=== PATIENT | male | born 1980 | race Caucasian/White ===

== ENCOUNTER 2020-03-20 14:56 | Emergency (ER) | payer OTHER ==
[~2020-03-20] VITALS: Ht 193 cm; Wt 108.9 kg
[~2020-03-20 14:56] MED LIST: AMARYL4 MG; ASPART; BACTRIM DS TAB1 EACH PO; FLEXERIL PO; GLUCOPHAGE1000 MG; HUMULINR100 SQ; HYDROCODON-ACE1 EAC7 PO; INSULIN N; INSULIN R; KEFLEX500 MG PO; LANTUS; NAPROSYN500 MG PO; NICOTINE TRANSD21 M1 TRANSDERM; NOHOMEMEDICATIONS; NORCO 5-325 TA1 EACH PO; NOVOLIN N100 UNIT/3 SUBQ; NOVOLIN R100 UNIT/1 SUBQ; TRAMADOL 50 MG50 MG PO; VICODIN 5-5001 EACH PO; ZOCOR 20 MG TAB20 M1
[2020-03-20] MEDS ORDERED: HUMULIN N100 UNIT/3 SUBQ ×2 (15:05→15:06)
[2020-03-20] MEDS ORDERED: CLEOCIN HCL150 MG PO ×3 (16:21→16:25)
[2020-03-20] MEDS ORDERED: NORCO 5-325 TA1 EAC1 PO ×3 (16:21→16:25)
[2020-03-20 16:32] VITALS: BP 140/75
== END 2020-03-20 16:33 | disposition home or self-care (01) ==
LOC: M.ERS 14:56
DX: L03.211 Cellulitis of face (principal); E11.9 Type 2 diabetes mellitus without complications; F17.210 Nicotine dependence, cigarettes, uncomplicated; Z86.19 Personal history of other infectious and parasitic diseases; Z79.4 Long term (current) use of insulin

== ENCOUNTER 2020-08-16 12:28 | Inpatient (IN) | payer OTHER ==
[2020-08-16] VITALS (13 sets, daily range): BP systolic 101–127; BP diastolic 51–79
[~2020-08-16] VITALS: Ht 193 cm; Wt 96.2 kg
--- NOTE | ~2020-08-16 | EMS ---
[address] [address] EMS Patient Care Report Name: DORENE VILLALBA Room: [address] IN ..#: [id number] Admission: 08/16/20 Attend Phys: Dianna Dupree MD Discharge: Date of : 84 Report #: [id number] THIS REPORT FOR: //name// Report Transmitted: 08/16/2020 16:30 EMS Care Summary [employer] [facility] Incident [id number] @ 08/16/2020 11:57 Incident Location [address] [place] [address] Patient DORENE VILLALBA Male, 40 Years 1980 Patient Address [address] [place] [address] Patient History Diabetes, Patient Allergies No known allergies, Chief Complaint Chest pain Disposition Transported No Lights/[place] [facility] Reason Sick Person Transported To [facility] Narrative Upon arrival the patient was located sitting on the steps in front of his front door. The patient was holding his chest and slouched over. The patient was found to be A&O x4 with a GCS of 15. The patient stated he was having severe chest pain rating it 9/10 and stated it felt like someone stabbing him. The [address] [address] EMS Patient Care Report Name: DORENE VILLALBA Room: [address] IN [facility]#: [id number] Admission: 08/16/20 Attend Phys: Dianna Dupree MD Discharge: Date of : 84 Report #: [id number] patient stated he had been to the hospital the week prior for uncontrolled nausea and vomiting. He advised that when they sent him home he was to follow up with a CT for his chest because they thought he may have injured something during the vomiting. The patient stated he didn't have insurance and couldn't follow up. The patient stated at first when he went home everything was fine but over the past couple days it had been getting worse. The patient stated now he couldn't eat or drink anything without the stabbing feeling in his chest getting worse and he was unable to control the pain. The patient requested transport to [facility]. The patient was able to walk to the ambulance parked just in front of him and was placed on the EMS cot and secured with industrial cot straps. Initial Vitals @12:02P: 112,R: 18,BP: 111/73,Pain: 9/10,GCS: 15,SpO2: 100,Revised Trauma: 12,[place] Suspected: false @12:12P: 104,R: 18,BP: 118/77,Pain: 9/10,GCS: 15,Glucose: 395,SpO2: 99,Revised Trauma: 12, @12:22P: 95,R: 18,BP: 132/71,Pain: 4/10,GCS: 15,SpO2: 99,Revised Trauma: 12,WV Suspected: false Assessments @12:02MENTAL:Person Oriented,Time Oriented,Place Oriented,Event Oriented,SKIN:HEENT:Head/Face: No Abnormalities,Neck/Airway: No Abnormalities,LUNG SOUNDS:General: Nausea,ABDOMEN:General: Nausea,PELVIS//GI:No Abnormalities,EXTREMITIES:Left Arm: No Abnormalities,Right Arm: No Abnormalities,Left Leg: No Abnormalities,Right Leg: No Abnormalities,PULSE:Radial: 2+ Normal,NEURO:No Abnormalities, Impression Chest Pain, Other (Non-Cardiac) Procedures @12:02ALS AssessmentResponse: UnchangedSucceeded@12:0812-Lead ECGResponse: UnchangedSucceeded@12:09Normal Saline (.9% NaCl) - Cold 250cc () Site: Hand-LeftResponse: UnchangedSucceeded@12:09Saline Lock 10cc (20 ga) Site: Hand-LeftResponse: UnchangedSucceeded@12:13Ondansetron - 4 Milligrams (mg) - Intramuscular (IM)Response: Improved@12:13Fentanyl - 50 Micrograms (mcg) - Intravenous (IV)Response: Improved Timeline 11:54,Call Received 11:57,Dispatched 11:57,En Route 12:00,At Patient 12:00,Initial Responder On Scene 12:00,[place] [address] EMS Patient Care Report Name: DORENE VILLALBA Room: [address] IN ..#: [id number] Admission: 08/16/20 Attend Phys: Dianna Dupree MD Discharge: Date of : 84 Report #: [id number] 12:02,ALS Assessment,Response: UnchangedSucceeded, 12:02,BP: 111/73 M,PULSE: 112,RR: 18 R,SPO2: 100 Ox,ETCO2: ,BG: ,PAIN: 9,GCS: 15, 12:04,Depart Scene 12:08,12-Lead ECG,Response: UnchangedSucceeded, 12:09,Normal Saline (.9% NaCl) - Cold 250cc Site: Hand-Left,Response: UnchangedSucceeded, 12:09,Saline Lock 10cc 20 ga Site: Hand-Left,Response: UnchangedSucceeded, 12:12,BP: 118/77 M,PULSE: 104,RR: 18 R,SPO2: 99 Ox,ETCO2: ,B,PAIN: 9,GCS: 15, 12:13,Ondansetron - 4 Milligrams (mg) - Intramuscular (IM),Response: Improved 12:13,Fentanyl - 50 Micrograms (mcg) - Intravenous (IV),Response: Improved 12:22,BP: 132/71 M,PULSE: 95,RR: 18 R,SPO2: 99 Ox,ETCO2: ,BG: ,PAIN: 4,GCS: 15, 12:23,At Destination 12:23,Transfer Patient 12:58,Call Closed 12:58,In District Disclaimer v1.1 Copyright 2020 [email or web address] This EMS Care Summary contains data elements from the applicable legal record (which may be displayed differently). It is designed to provide pertinent information for the following purposes: continuity of care, clinical quality, and state data reporting. The complete legal record is available to ED staff and administrators of the receiving hospital in [employer]'s Patient Tracker. All data is provided "as is."
[~2020-08-16 12:28] MED LIST changes: +CLEOCIN HCL150 MG PO; +HUMULIN N100 UNIT/3 SUBQ; +NORCO 5-325 TA1 EAC1 PO
[2020-08-16 13:06] LABS: HEMATOCRIT 45.9 % (42.0-52.0); HEMOGLOBIN 15.4 gm/dL (14.0-18.0); MCH 29.4 pg (26.0-34.0); MCHC 33.5 g/dL (28.0-37.0); MCV 87.9 fL (80.0-100.0); MPV 8.5 fl. (7.2-11.1); NUCLEATED RBCS 0 /100WBC; PLATELET COUNT* 478 thou/uL (150-400); RBC 5.22 mil/uL (4.50-6.00); RDW-CV 13.5 % (10.5-14.5)
[2020-08-16 13:17] LABS: CALCIUM 8.6 mg/dL (8.5-10.1); CREATININE 1.3 mg/dL (0.6-1.3); POTASSIUM 5.1 mmol/L (3.5-5.1)
[2020-08-16 13:17] LABS: URINE BLOOD 3+ (Negative); URINE CLARITY SL CLOUDY; URINE COLOR YELLOW; URINE GLUCOSE-RANDOM 3+ (Negative); URINE LEUKOCYTES-REFLEX NEGATIVE (Negative); URINE NITRITE-REFLEX NEGATIVE (Negative); URINE PROTEIN NEGATIVE (Negative); URINE SPECIFIC GRAVITY >= 1.030 (1.005-1.030); URINE UROBILINOGEN 0.2 E.U./dl (0.2-1.0)
[2020-08-16 13:18] LABS: URINE KETONES 3+ (Negative)
[2020-08-16 13:18] LABS: APTT 25.2 Seconds (25.0-31.3); PROTIME 10.8 Seconds (9.20-11.50)
[2020-08-16 13:19] LABS: ICTOTEST (BILI CONFIRMATORY) Negative (Negative); URINE BILIRUBIN 1+ (Negative)
[2020-08-16 13:24] LABS: AMP/METHAMP Negative (Negative); BARBITURATES Negative (Negative); BENZODIAZEPINES Negative (Negative); COCAINE Negative (Negative); METHADONE Negative (Negative); OPIATES Negative (Negative); PCP Negative (Negative); THC Negative (Negative)
[2020-08-16 13:25] LABS: ALBUMIN 3.2 g/dL (3.4-5.0); MAGNESIUM 1.9 mg/dL (1.8-2.4); TOTAL BILIRUBIN 0.6 mg/dL (<0.1-1.0); TOTAL PROTEIN 7.4 g/dL (6.4-8.2)
[2020-08-16 13:27] LABS: BACTERIA-REFLEX None Seen /HPF (None Seen); CRYSTALS None Seen /LPF (None Seen); HYALINE CASTS 0-3 Few /LPF (None Seen); MUCUS None Seen strn/LPF (None Seen); SQUAMOUS NONE SEEN /LPF (0-3); URINE RBC >20 Many /HPF (0-2); URINE WBC-REFLEX None Seen /HPF (0-5)
[2020-08-16 13:47] LABS: ABSOLUTE LYMPHOCYTES 0.8 thou/uL (0.8-5.3); ABSOLUTE NEUTROPHILS 7.2 thou/uL (1.6-8.1); PLATELET ESTIMATE ADEQUATE
--- NOTE | 2020-08-16 13:50 | EKG ---
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: [facility] : 1980 Requested By: Padmini Payan Order Number: [id number] MD: Ra Uribe Measurements Intervals [place] Rate: 80 P: 73 KS: 142 QRS: 66 QRSD: 95 T: 53 QT: 387 QTc: 447 Interpretive Statements Sinus rhythm ST elev, probable normal early repol pattern Compared to ECG 03/01/2015 16:49:26 no change Electronically Signed On 08-16-2020 13:50:35 CDT by Ra Uribe [email or web address] <ELECTRONICALLY SIGNED> By: Ra Uribe MD, [facility] 08/16/20 1350 1234 1234 Ra Uribe MD, [facility] /EPI
[2020-08-16 14:18] LABS: BE -15.6 mmol/L (-2 to +3); PCO2 21.5 mmHg (35.0-45.0); PO2 107.1 mmHg (75.0-100.0)
[2020-08-16 14:20] LABS: pH 7.254 (7.340-7.450)
[2020-08-16 17:25] LABS: CALCIUM 8.1 mg/dL (8.5-10.1); CREATININE 1.3 mg/dL (0.6-1.3); POTASSIUM 4.2 mmol/L (3.5-5.1)
[2020-08-16] MEDS ORDERED: HUMULIN N100 UNIT/1 SUBQ ×2 (17:25→17:28)
[2020-08-16 17:30] LABS: ALBUMIN 2.9 g/dL (3.4-5.0); CALCIUM 8.1 mg/dL (8.5-10.1); CREATININE 1.3 mg/dL (0.6-1.3); PHOSPHORUS* 3.3 mg/dL (2.5-4.9); POTASSIUM 4.1 mmol/L (3.5-5.1)
[2020-08-16 21:56] LABS: ALBUMIN 2.7 g/dL (3.4-5.0); CREATININE 1.1 mg/dL (0.6-1.3); MAGNESIUM 1.8 mg/dL (1.8-2.4); PHOSPHORUS* 2.8 mg/dL (2.5-4.9)
[2020-08-17] VITALS (22 sets, daily range): BP systolic 93–133; BP diastolic 54–88
[2020-08-17 03:08] LABS: ALBUMIN 2.6 g/dL (3.4-5.0); ALKALINE PHOSPHATASE 78 U/L (46-116); ANION GAP 9 mmol/L (7-16); BUN 20 mg/dL (7-18); CALCIUM 7.9 mg/dL (8.5-10.1); CHLORIDE 102 mmol/L (98-107); CO2 22 mmol/L (21-32); CREATININE 0.9 mg/dL (0.6-1.3); GLUCOSE 152 mg/dL (70-99); MAGNESIUM 1.8 mg/dL (1.8-2.4); POTASSIUM 4.3 mmol/L (3.5-5.1); SGOT 11 U/L (15-37); SGPT 23 U/L (30-65); SODIUM 133 mmol/L (136-145); TOTAL BILIRUBIN 0.3 mg/dL (<0.1-1.0); TOTAL PROTEIN 6.1 g/dL (6.4-8.2)
[2020-08-17 03:10] LABS: ALBUMIN 2.6 g/dL (3.4-5.0); CALCIUM 8.1 mg/dL (8.5-10.1); CREATININE 0.9 mg/dL (0.6-1.3); MAGNESIUM 1.9 mg/dL (1.8-2.4); PHOSPHORUS* 3.2 mg/dL (2.5-4.9); POTASSIUM 4.3 mmol/L (3.5-5.1)
[2020-08-17 06:19] LABS: BE -6.4 mmol/L (-2 to +3); PCO2 36.3 mmHg (35.0-45.0); PO2 64.3 mmHg (75.0-100.0); pH 7.331 (7.340-7.450)
[2020-08-18 05:04] LABS: ABSOLUTE EOSINOPHILS 0.1 thou/uL (0.0-0.7); ABSOLUTE LYMPHOCYTES 3.6 thou/uL (0.8-5.3); ABSOLUTE NEUTROPHILS 3.5 thou/uL (1.6-8.1); BASOPHILS 0.5 %; EOSINOPHILS 1.4 %; HEMATOCRIT 37.1 % (42.0-52.0); MCH 29.6 pg (26.0-34.0); MCHC 35.3 g/dL (28.0-37.0); MCV 83.9 fL (80.0-100.0); MONOCYTES 11.7 %; MPV 8.7 fl. (7.2-11.1); NUCLEATED RBCS 0 /100WBC; POLYS 42.4 %; RBC 4.42 mil/uL (4.50-6.00); RDW-CV 13.9 % (10.5-14.5); WBC 8.3 thou/uL (4.0-11.0)
[2020-08-18 05:19] VITALS: BP 123/76
[2020-08-18 05:22] LABS: HEMOGLOBIN 13.1 gm/dL (14.0-18.0); PLATELET COUNT* 400 thou/uL (150-400)
[2020-08-18 05:31] LABS: ALBUMIN 2.6 g/dL (3.4-5.0); ALKALINE PHOSPHATASE 72 U/L (46-116); ANION GAP 8 mmol/L (7-16); BUN 12 mg/dL (7-18); CALCIUM 8.2 mg/dL (8.5-10.1); CHLORIDE 104 mmol/L (98-107); CO2 26 mmol/L (21-32); CREATININE 0.7 mg/dL (0.6-1.3); GLUCOSE 150 mg/dL (70-99); PHOSPHORUS* 3.2 mg/dL (2.5-4.9); POTASSIUM 3.5 mmol/L (3.5-5.1); SGOT 10 U/L (15-37); SGPT 20 U/L (30-65); SODIUM 138 mmol/L (136-145); TOTAL BILIRUBIN 0.2 mg/dL (<0.1-1.0); TOTAL PROTEIN 5.9 g/dL (6.4-8.2)
[2020-08-18 07:50] VITALS: BP 112/74
[2020-08-18 08:30] VITALS: BP 123/76
[2020-08-18] MEDS ORDERED: HUMULINR100 SQ (08:59)
[2020-08-18] MEDS ORDERED: HUMULIN N100 UNIT/1 SUBQ ×2 (08:59)
[2020-08-18] MEDS ORDERED: PROTONIX40 M4 PO (08:59)
[2020-08-18] MEDS ORDERED: NOVOLIN R100 UNIT/1 SUBQ (08:59)
[2020-08-18 12:22] VITALS: BP 123/76
[2020-08-18 20:00] VITALS: BP 113/71
[2020-08-19] VITALS: BP 118/74
[2020-08-19 05:26] LABS: CALCIUM 8.6 mg/dL (8.5-10.1); CREATININE 0.6 mg/dL (0.6-1.3); POTASSIUM 3.7 mmol/L (3.5-5.1)
[2020-08-19 07:30] VITALS: BP 125/83
--- NOTE | 2020-08-19 07:39 | CON ---
[address] [address] CONSULTATION Name: DORENE VILLALBA Room: [address] IN M.R.#: [id number] Admission: 08/16/20 Attend Phys: Dianna Dupree MD Discharge: Date of : 84 Report #: [id number] THIS REPORT FOR: //name// cc: TREY - No family physician/PCP [facility] - No family physician/PCP ~ THIS REPORT FOR: //name// CC: [facility] physician/PCP Dianna Dupree DICTATED BY: Antionette Dickey [facility] DATE OF SERVICE: 08/17/2020 The patient does not have a PCP. Please note at the time of this dictation, the patient was seen and physically examined by myself. REASON FOR CONSULTATION: Painful swallowing and difficulty. HISTORY OF PRESENT ILLNESS: This is a 40-year-old male who presented to [facility] after being discharged from [facility] several days ago with similar symptoms. He states he is having ongoing chest discomfort and odynophagia. He states that it started on 08/05/2020 after his blood sugars were very high and he had significant nausea and vomiting. Ever since that time, he has been complaining of difficulty swallowing and burning and pressure in the middle part of his chest. He states just over the last 24 hours, it has somewhat improved and now only occurring when he eats or drinks. It is not all the time like it was before. He has not ever had an EGD or colonoscopy. He is not taking any antacids or PPIs at this time. The patient was at [facility] for pneumomediastinum and right-sided pneumothorax at that time. The patient also has a longstanding history of substance abuse. He states his last inhalation was about a month ago. Otherwise, he smokes marijuana on a regular basis as well as smoking tobacco, but denies any alcohol use. It is also noted back in his previous admissions that he was hepatitis C positive. He was a greater than 4 million on his viral load as well as genotype 1b back in 2013. He states he was not a candidate for any treatment at that time, so he likely still has hepatitis C unless he cleared it on his own. ALLERGIES: No known drug allergies. MEDICATIONS FROM HOME: None. Unable to afford his insulin. PAST MEDICAL HISTORY: Insulin-dependent diabetic, positive for hepatitis C, anxiety, depression, [place] [address] CONSULTATION Name: DORENE VILLALBA Room: [address]#: [id number] Admission: 08/16/20 Attend Phys: Dianna Dupree MD Discharge: Date of : 84 Report #: [id number] PAST SURGICAL HISTORY: Left ankle, he has got a steel plate and 9 screws. FAMILY HISTORY: Negative for any GI or female cancers. SOCIAL HISTORY: He does smoke tobacco a pack a day. He does THC on a daily basis and recreational drug use has been less than a month ago. REVIEW OF SYSTEMS: Twelve-point review of systems is essentially negative except what is mentioned in the HPI. PHYSICAL EXAMINATION: VITAL SIGNS: Temperature 36.7, pulse 71, respirations 15, blood pressure 92/75. HEART: Regular rate and rhythm. LUNGS: Diminished, but clear. ABDOMEN: Soft, positive bowel sounds in all 4 quadrants with no masses or tenderness noted. LABORATORY DATA: Hemoglobin 15.4, white count 8, platelets 478. PT 10.8, INR is 1. Sodium 125. ASSESSMENT: 1. Diabetic ketoacidosis on admission. 2. Polysubstance abuse. PLAN: 1. EGD tomorrow with Dr. Mcarthur. 2. We will check AFP since positive for HIV. 3. Further recommendations to be made once the procedure has been performed. Thank you for allowing us to participate in this patient's care. Please do not hesitate to call with any questions in regard to this consult. <ELECTRONICALLY SIGNED> By: Bandar Mcarthur DO 08/19/20 0739 1139 1220Bandar Mcarthur DO /nt
--- NOTE | 2020-08-19 12:34 | CON ---
[address] [address] CONSULTATION Name: DORENE VILLALBA Room: [address] IN M.R.#: [id number] Admission: 08/16/20 Attend Phys: Dianna Dupree MD Discharge: Date of : 84 Report #: [id number] THIS REPORT FOR: //name// cc: TREY Moreno family physician/PCP TREY Moreno family physician/PCP ~ THIS REPORT FOR: //name// CC: TREY physician/PCP Dianna Dupree DATE OF SERVICE: 08/17/2020 NEPHROLOGY CONSULTATION REASON FOR NEPHROLOGY CONSULTATION: DKA. REASON FOR ADMISSION: DKA. HISTORY OF PRESENT ILLNESS: The patient is a 40-year-old male with past medical history of diabetes, insulin-dependent and this is likely type 1 diabetes with history of DKAs in the past, presented because he was unable to take anything p.o. and was having some odynophagia and chest discomfort. He was recently discharged from [facility]. He did have some right-sided pneumothorax and pneumomediastinum. At that time, Cardiothoracic Surgery did not feel he had esophageal issues and they felt his pneumomediastinum came from pneumothorax. His DKA was treated overnight. His creatinine is 0.9 and he can eat and drink this morning once his swallowing is tested. CT chest was repeated here and there was no evidence of pneumomediastinum or pneumothorax. The patient does have a new problem, though he is reporting that he has been having gross hematuria at least on 2 occasions since yesterday morning and he has no history of kidney stones. I looked back and he has had blood in his urine before, but he is not reported gross hematuria before. He did receive Toradol yesterday in the ER. No recent Krishnan catheter use and he does not take any blood thinners. ALLERGIES: No known allergies. REVIEW OF SYSTEMS: As mentioned in history of present illness, otherwise 10-point review of systems done, negative. HOME MEDICATIONS: Include [place] and regular insulin, NPH insulin. PAST MEDICAL AND SURGICAL HISTORY: Includes insulin-dependent diabetes mellitus, this is likely type 1, left ankle surgery with steel plates and 9 screws, hepatitis C positive, anxiety, polysubstance abuse, methamphetamine use, marijuana use, depression, [place] [address] CONSULTATION Name: DORENE VILLALBA Room: [address] IN ..#: [id number] Admission: 08/16/20 Attend Phys: Dianna Dupree MD Discharge: Date of : 84 Report #: [id number] FAMILY HISTORY: No history of any kidney disease in the family or hematuria in the family. SOCIAL HISTORY: In the past 3 months, he has used THC. He has used that daily and current every day smoker and alcohol use was not reported. PHYSICAL EXAMINATION: VITAL SIGNS: His blood pressure is 93/75, temperature 36.1, his pulse rate is 71, respiratory rate is 15, pulse ox 99%. He is on room air. GENERAL: He is awake, alert, oriented x 3. HEAD AND EYES: Atraumatic and normocephalic. Conjunctivae normal. EARS, NOSE, AND THROAT: Normal ears and nose. Mucous membranes are moist. NECK: There is no JVD. CHEST: Bilaterally clear to auscultation. No crackles or wheezing. CARDIOVASCULAR: S1, S2 normal. No murmurs. ABDOMEN: Soft, nondistended, nontender. Bowel sounds are present. LOWER EXTREMITIES: There is no lower extremity edema. NEUROLOGICAL FUNCTION: Grossly intact. PSYCHIATRIC: Mood and affect seems to be normal. LABORATORY DATA: Hemoglobin is 15.4. Sodium was 133 this morning, glucose was 153, creatinine was 0.9, CO2 was 22, potassium was 4.0. Other labs were reviewed. IMAGING: Chest CT and chest x-ray were reviewed. ASSESSMENT: 1. Diabetic ketoacidosis. This is resolving. He has a normal creatinine. His metabolic acidosis is resolving. He will be allowed to eat and drink this morning. 2. Hypotension, but he is asymptomatic at this point. 3. History of polysubstance abuse. 4. Recent pneumothorax and pneumomediastinum, which has now resolved. 5. Type 1 diabetes and noncompliance with medication. 6. Hepatitis C positive, not sure if he was ever treated. 7. Anxiety. 8. Depression, bipolar disorder. 9. Gross hematuria. PLAN: 1. His creatinine is now better. His metabolic acidosis is also better. 2. He does have a new problem of gross hematuria. We do not have urological service here at the hospital, but I would recommend checking a CT abdomen and pelvis and if there was an abnormality there and if he continues to have gross hematuria, he will need to be transferred to another facility. [address] [address] CONSULTATION Name: DORENE VILLALBA Room: [address] IN M.R.#: [id number] Admission: 08/16/20 Attend Phys: Dianna Dupree MD Discharge: Date of : 84 Report #: [id number] 3. If urological evaluation turns out to be negative, he will then need to follow with nephrology and he can follow with us and this could be associated with nephrolithiasis or cystitis, although he is not having any symptoms of urinary infection, could be IgA nephropathy, but he does need a urological evaluation first of for a fall. At this point, there is nothing else to add from nephrology standpoint and will be signing off and discussed with the patient's nurse in detail. She will seen by Dr. Dupree about this gross hematuria. Discussed with the patient also in detail. <ELECTRONICALLY SIGNED> By: Vicky Carpio MD 08/19/20 1234 0939 1026Ajose daniel Carpio MD /nt
[2020-08-19 16:00] VITALS: BP 109/80
[2020-08-20 06:47] LABS: CALCIUM 8.7 mg/dL (8.5-10.1); CREATININE 0.8 mg/dL (0.6-1.3); POTASSIUM 3.7 mmol/L (3.5-5.1)
[2020-08-20 08:18] VITALS: BP 123/90
[2020-08-20] MEDS ORDERED: CARAFATE 11 GM/10 M1 PO (08:54)
[2020-08-20] MEDS ORDERED: ACYCLOVIR 400400 MG PO (08:54)
[2020-08-20 11:44] VITALS: BP 123/76
[2020-08-20 11:53] LABS: URINE BILIRUBIN NEGATIVE (Negative); URINE BLOOD 2+ (Negative); URINE CLARITY CLEAR; URINE COLOR YELLOW; URINE GLUCOSE-RANDOM TRACE (Negative); URINE KETONES NEGATIVE (Negative); URINE LEUKOCYTES NEGATIVE (Negative); URINE NITRITE NEGATIVE (Negative); URINE PROTEIN NEGATIVE (Negative); URINE UROBILINOGEN 0.2 E.U./dl (0.2-1.0)
[2020-08-20 12:02] LABS: SQUAMOUS 0-3 Few /LPF (0-3)
[2020-08-20 12:03] LABS: BACTERIA 1-9 Few /HPF (None Seen); CASTS None Seen /LPF (None Seen); CRYSTALS None Seen /LPF (None Seen); MUCUS 4-6 Moderate strn/LPF (None Seen); URINE RBC 0-2 Rare /HPF (0-2); URINE WBC 0-5 Rare /HPF (0-5)
[2020-08-20 12:44] VITALS: BP 123/76
== END 2020-08-20 12:47 | disposition home or self-care (01) | DRG 638 ==
LOC: M.ERS 12:28 → M.TBA-ER 14:28 → M.ICU 15:19 → M.2W 08-17 22:31 → M.ORTHSURG 08-19 07:03
PROVIDERS: Nurse Practitioner Family; ADMIT Internal Medicine; ATTEND Internal Medicine
PROC: 0DB58ZX Excision of Esophagus, Via Natural or Artificial Opening Endoscopic, Diagnostic (ICD-10-PCS; principal; 2020-08-18)
DX: E10.10 Type 1 diabetes mellitus with ketoacidosis without coma (principal); N17.9 Acute kidney failure, unspecified; F41.9 Anxiety disorder, unspecified; F32.9 Major depressive disorder, single episode, unspecified; F12.90 Cannabis use, unspecified, uncomplicated; I95.9 Hypotension, unspecified; R31.0 Gross hematuria; B19.20 Unspecified viral hepatitis C without hepatic coma; F19.10 Other psychoactive substance abuse, uncomplicated; F17.210 Nicotine dependence, cigarettes, uncomplicated; R13.10 Dysphagia, unspecified; K20.90 Esophagitis, unspecified without bleeding; E86.0 Dehydration; Z20.828 Contact with and (suspected) exposure to other viral communicable diseases; Z79.4 Long term (current) use of insulin; Z86.19 Personal history of other infectious and parasitic diseases

== ENCOUNTER 2021-01-12 17:08 | Inpatient (IN) | payer OTHER ==
[~2021-01-12] VITALS: Ht 193 cm; Wt 102.1 kg
[~2021-01-12 17:08] MED LIST changes: +ACYCLOVIR 400400 MG PO; +CARAFATE 11 GM/10 M1 PO; +HUMULIN N100 UNIT/1 SUBQ; +PROTONIX40 M4 PO
[2021-01-12 17:24] VITALS: BP 130/84
[2021-01-12 17:47] LABS: ABSOLUTE BASOPHILS 0.1 thou/uL (0.0-0.2); ABSOLUTE LYMPHOCYTES 1.7 thou/uL (0.8-5.3); ABSOLUTE MONOCYTES 0.5 thou/uL (0.0-1.2); BASOPHILS 0.6 %; EOSINOPHILS 0.5 %; HEMATOCRIT 41.6 % (42.0-52.0); HEMOGLOBIN 13.7 gm/dL (14.0-18.0); LYMPHOCYTES 18.2 %; MCH 28.6 pg (26.0-34.0); MCV 86.5 fL (80.0-100.0); MONOCYTES 5.2 %; MPV 10.3 fl. (7.2-11.1); NUCLEATED RBCS 0 /100WBC; PLATELET COUNT* 292 thou/uL (150-400); POLYS 75.5 %; RDW-CV 13.5 % (10.5-14.5); WBC 9.3 thou/uL (4.0-11.0)
[2021-01-12 17:56] LABS: CALCIUM 10.5 mg/dL (8.5-10.1); CREATININE 1.4 mg/dL (0.6-1.3); POTASSIUM 4.9 mmol/L (3.5-5.1)
[2021-01-12 17:57] LABS: ALBUMIN 4.1 g/dL (3.4-5.0); TOTAL BILIRUBIN 1.2 mg/dL (<0.1-1.0); TOTAL PROTEIN 7.7 g/dL (6.4-8.2)
[2021-01-12 19:42] LABS: URINE BILIRUBIN NEGATIVE (Negative); URINE BLOOD NEGATIVE (Negative); URINE CLARITY CLEAR; URINE COLOR YELLOW; URINE GLUCOSE-RANDOM 3+ (Negative); URINE LEUKOCYTES-REFLEX NEGATIVE (Negative); URINE NITRITE-REFLEX NEGATIVE (Negative); URINE PROTEIN NEGATIVE (Negative); URINE SPECIFIC GRAVITY 1.015 (1.005-1.030); URINE UROBILINOGEN 0.2 E.U./dl (0.2-1.0)
[2021-01-12 19:52] LABS: URINE KETONES 3+ (Negative)
[2021-01-12 20:21] VITALS: BP 121/68
[2021-01-12 20:26] LABS: AMP/METHAMP POSITIVE (Negative); BARBITURATES Negative (Negative); BENZODIAZEPINES Negative (Negative); COCAINE Negative (Negative); METHADONE Negative (Negative); OPIATES Negative (Negative); PCP Negative (Negative); THC POSITIVE (Negative)
[2021-01-12 22:00] VITALS: BP 118/71
[2021-01-12 23:00] LABS: CALCIUM 8.3 mg/dL (8.5-10.1); CREATININE 0.9 mg/dL (0.6-1.3); POTASSIUM 4.5 mmol/L (3.5-5.1)
[2021-01-13 04:00] VITALS: BP 118/79
[2021-01-13 04:43] LABS: ABSOLUTE BASOPHILS 0.1 thou/uL (0.0-0.2); ABSOLUTE EOSINOPHILS 0.3 thou/uL (0.0-0.7); ABSOLUTE LYMPHOCYTES 4.3 thou/uL (0.8-5.3); ABSOLUTE MONOCYTES 0.6 thou/uL (0.0-1.2); BASOPHILS 0.8 %; EOSINOPHILS 2.8 %; HEMATOCRIT 36.5 % (42.0-52.0); HEMOGLOBIN 12.5 gm/dL (14.0-18.0); LYMPHOCYTES 46.3 %; MCH 28.9 pg (26.0-34.0); MCHC 34.2 g/dL (28.0-37.0); MCV 84.3 fL (80.0-100.0); MONOCYTES 6.9 %; MPV 9.9 fl. (7.2-11.1); NUCLEATED RBCS 0 /100WBC; PLATELET COUNT* 261 thou/uL (150-400); POLYS 43.2 %; RBC 4.33 mil/uL (4.50-6.00); RDW-CV 13.4 % (10.5-14.5); WBC 9.3 thou/uL (4.0-11.0)
[2021-01-13 04:54] LABS: CALCIUM 8.3 mg/dL (8.5-10.1); CREATININE 0.9 mg/dL (0.6-1.3); POTASSIUM 3.8 mmol/L (3.5-5.1)
[2021-01-13 07:53] VITALS: BP 123/77
--- NOTE | 2021-01-13 09:32 | EKG ---
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
[2021-01-13 12:00] VITALS: BP 114/75
[2021-01-13 16:30] VITALS: BP 106/62
[2021-01-13 20:00] VITALS: BP 122/70
[2021-01-13 23:06] LABS: GLYCOHEMOGLOBIN (HGB A1C) 11.4 % (4.8-5.6)
[2021-01-14 00:19] VITALS: BP 112/71
[2021-01-14 05:14] LABS: HEMATOCRIT 37.5 % (42.0-52.0); HEMOGLOBIN 12.9 gm/dL (14.0-18.0); MCH 29.1 pg (26.0-34.0); MCHC 34.3 g/dL (28.0-37.0); MCV 84.9 fL (80.0-100.0); MPV 9.6 fl. (7.2-11.1); RBC 4.41 mil/uL (4.50-6.00); RDW-CV 13.5 % (10.5-14.5); WBC 8.6 thou/uL (4.0-11.0)
[2021-01-14 05:30] LABS: ALBUMIN 2.9 g/dL (3.4-5.0); CREATININE 0.8 mg/dL (0.6-1.3); MAGNESIUM 1.8 mg/dL (1.8-2.4); POTASSIUM 3.9 mmol/L (3.5-5.1); TOTAL BILIRUBIN 0.2 mg/dL (<0.1-1.0); TOTAL PROTEIN 5.8 g/dL (6.4-8.2)
[2021-01-14 06:26] VITALS: BP 111/66
[2021-01-14 08:00] VITALS: BP 113/73
[2021-01-14] MEDS ORDERED: HUMULIN N100 UNIT/1 SUBQ (11:15)
[2021-01-14] MEDS ORDERED: HUMULIN R100 UNIT/1 SUBQ (11:15)
[2021-01-14 11:35] VITALS: BP 113/73
== END 2021-01-14 12:00 | disposition home or self-care (01) | DRG 638 ==
LOC: M.ERS 17:08 → M.TBA-ER 18:20 → M.2W 20:40
PROVIDERS: Internal Medicine; Physician Assistant; ADMIT Internal Medicine; ATTEND Internal Medicine
DX: E11.10 Type 2 diabetes mellitus with ketoacidosis without coma (principal); E87.1 Hypo-osmolality and hyponatremia; E11.00 Type 2 diabetes mellitus with hyperosmolarity without nonketotic hyperglycemic-hyperosmolar coma (NKHHC); F41.9 Anxiety disorder, unspecified; F17.210 Nicotine dependence, cigarettes, uncomplicated; F31.9 Bipolar disorder, unspecified; F12.11 Cannabis abuse, in remission; F15.11 Other stimulant abuse, in remission; Z20.822 Contact with and (suspected) exposure to COVID-19; Z79.4 Long term (current) use of insulin; Z91.14 Patient's other noncompliance with medication regimen; Z79.899 Other long term (current) drug therapy